=== PATIENT | male | born 1965 | race Caucasian/White ===

== ENCOUNTER 2018-05-16 10:19 | Inpatient (IN) | payer OTHER ==
[~2018-05-16] VITALS: Ht 170.2 cm; Wt 104.0 kg
[2018-05-16] MEDS ORDERED: SODIUM CHLORIDE 0.9% 500 ML IV ONE (11:05)
[2018-05-16] MEDS ORDERED: diphenhdrAMINE HCL 50 MG/1 ML VL IV ONE (11:15)
[2018-05-16] MEDS ORDERED: LORazepam 2MG/ML-1ML VIAL IV ONE ×2 (11:15→11:45)
[2018-05-16 11:18] LABS: Basophils # (auto) 0 uL; Basophils % (auto) 0.5 % (0.0-2.0); Eosinophils # (auto) 0.1 uL; Eosinophils % (auto) 0.8 % (0.0-7.0); Hemoglobin 15.6 g/dL (13.5-17.5); Lymphocytes # (auto) 2.3 uL; Lymphocytes % (auto) 24.6 % (10.0-50.0); Mean Corpuscular Hemoglobin 31.9 pg (28.0-32.0); Mean Corpuscular Hgb Conc. 34.5 g/dL (32.0-36.0); Mean Corpuscular Volume 92.4 fL (80.0-100.0); Monocytes # (auto) 0.7 uL; Monocytes % (auto) 7.6 % (0.0-12.0); Neutrophils # (auto) 6.1 uL; Neutrophils % (auto) 66.5 % (37.0-80.0); Nucleated Red Blood Cells % 0.1 %; Platelet Count (auto) 227 10^3/uL (140-450); Red Blood Cells 4.87 10^6/uL (4.5-5.90); Red Cell Distribution Width 14.3 % (11.8-14.3); White Blood Cell 9.2 10^3/uL (4.4-10.8)
[2018-05-16 11:37] LABS: Alanine Aminotransferase 22 U/L (16-61); Albumin 3.7 g/dL (3.4-5.0); Anion Gap 12 (5-15); Aspartate Aminotransferase 17 U/L (15-37); BUN/Creatinine Ratio 13.8; Blood Alcohol < 3.0 mg/dL (0-5); Blood Urea Nitrogen 12 mg/dL (7-18); Calcium 8.5 mg/dL (8.5-10.1); Carbon Dioxide 15 mmol/L (21-32); Chloride 114 mmol/L (98-107); GFR African American 117 mL/min; GFR Non-African American 97 mL/min; Glucose 90 mg/dL (74-106); Potassium 3.8 mmol/L (3.5-5.1); Sodium 141 mmol/L (136-145)
[2018-05-16 11:40] LABS: Alkaline Phosphatase 89 U/L (45-117); Bilirubin, Total 0.8 mg/dL (0.2-1.0)
[2018-05-16] MEDS ORDERED: diphenhdrAMINE HCL 25 MG CAP PO ONE (11:45)
[2018-05-16 12:30] LABS: Urine Bacteria NONE SEEN /hpf (None Seen); Urine Blood Negative /uL (Negative); Urine Mucus FEW (None Seen); Urine Specific Gravity 1.025 (1.001-1.035); Urine WBC 2 /hpf (0 - 3)
[2018-05-16] MEDS ORDERED: CITALOPRAM HYDROBR 20 MG TAB PO ONE (12:30)
[2018-05-16 12:59] LABS: Amphetamine Screen, Urine NEGATIVE (NEGATIVE); Barbiturate Scree,Urine NEGATIVE (NEGATIVE); Benzodiazephine Screen, Urine NEGATIVE (NEGATIVE); Cannabinoid Screen, Urine POSITIVE (NEGATIVE); Cocaine Screen, Urine NEGATIVE (NEGATIVE); Opiate Scree,Urine NEGATIVE (NEGATIVE); Phencyclidine Screen, Urine NEGATIVE (NEGATIVE)
[2018-05-16] MEDS ORDERED: clonazePAM 0.5 MG TAB PO ONE (21:00)
[2018-05-17] MEDS ORDERED: CITALOPRAM HYDROBR 20 MG TAB PO ONE (11:15)
[2018-05-17] MEDS ORDERED: clonazePAM 0.5 MG TAB PO ONE ×2 (11:15→14:45)
[2018-05-17] MEDS ORDERED: LORazepam 0.5 MG TAB PO ONE (13:45)
[2018-05-17] MEDS ORDERED: PYRIDOXINE HCL 50 MG TAB PO SCH (15:00)
[2018-05-17] MEDS: ALBUTEROL SULF 2.5 MG/0.5ML(0.5%) NEB SOLN NEB SCH (18:12)
[2018-05-17] MEDS: IPRATROPIUM BROM 0.5 MG/2.5ML INH SOL NEB SCH (18:12)
[2018-05-17 19:14] VITALS: BP 109/65
[2018-05-17 20:48] VITALS: BP 124/84
[2018-05-17] MEDS: clonazePAM 0.5 MG TAB PO SCH (21:35)
[2018-05-17] MEDS ORDERED: HYDR12.56 PO (22:53)
[2018-05-17] MEDS ORDERED: ZIPR80CA8 PO (22:53)
[2018-05-17] MEDS ORDERED: CLON05T PO (22:53)
[2018-05-17] MEDS ORDERED: CITA-73 PO (22:53)
[2018-05-17] MEDS ORDERED: RASA1TAB4 PO (22:53)
[2018-05-17] MEDS ORDERED: FLUT250M2 IN (22:53)
[2018-05-18] MEDS ORDERED: IBUPROFEN 600 MG TAB PO PRN (02:15)
[2018-05-18 05:11] VITALS: BP 114/75
[2018-05-18 06:17] LABS: Basophils # (auto) 0 uL; Basophils % (auto) 0.3 % (0.0-2.0); Eosinophils # (auto) 0.1 uL; Eosinophils % (auto) 1.4 % (0.0-7.0); Hematocrit 43.1 % (41.0-53.0); Hemoglobin 14.6 g/dL (13.5-17.5); Lymphocytes # (auto) 2.2 uL; Mean Corpuscular Hemoglobin 31.5 pg (28.0-32.0); Mean Corpuscular Hgb Conc. 33.9 g/dL (32.0-36.0); Mean Corpuscular Volume 92.8 fL (80.0-100.0); Monocytes # (auto) 0.6 uL; Monocytes % (auto) 7.4 % (0.0-12.0); Neutrophils # (auto) 4.9 uL; Neutrophils % (auto) 62.9 % (37.0-80.0); Nucleated Red Blood Cells % 0.1 %; Platelet Count (auto) 197 10^3/uL (140-450); Red Blood Cells 4.65 10^6/uL (4.5-5.90); Red Cell Distribution Width 14.3 % (11.8-14.3); White Blood Cell 7.8 10^3/uL (4.4-10.8)
[2018-05-18 06:28] LABS: BUN/Creatinine Ratio 18.1; Calcium 8.1 mg/dL (8.5-10.1)
[2018-05-18] MEDS: ALBUTEROL SULF 2.5 MG/0.5ML(0.5%) NEB SOLN NEB SCH ×3 (07:08→20:10)
[2018-05-18] MEDS: IPRATROPIUM BROM 0.5 MG/2.5ML INH SOL NEB SCH ×3 (07:08→20:10)
[2018-05-18 07:22] VITALS: BP 113/78
[2018-05-18] MEDS: PYRIDOXINE HCL 50 MG TAB PO SCH (10:02)
[2018-05-18] MEDS: clonazePAM 0.5 MG TAB PO SCH ×2 (10:02→22:52)
[2018-05-18] MEDS: CITALOPRAM HYDROBR 20 MG TAB PO SCH (10:03)
[2018-05-18] MEDS: HYDROcodone-ACET 10/325MG TAB PO PRN ×3 (10:09→22:53)
[2018-05-18 12:02] VITALS: BP 139/77
[2018-05-18 16:43] VITALS: BP 132/79
[2018-05-18 21:00] VITALS: BP 125/58
[2018-05-19 05:03] VITALS: BP 93/57
[2018-05-19] MEDS: IPRATROPIUM BROM 0.5 MG/2.5ML INH SOL NEB SCH ×4 (06:21→19:02)
[2018-05-19] MEDS: ALBUTEROL SULF 2.5 MG/0.5ML(0.5%) NEB SOLN NEB SCH ×4 (06:21→19:02)
[2018-05-19 08:00] VITALS: BP 129/76
[2018-05-19 09:00] VITALS: BP 129/76
[2018-05-19] MEDS: clonazePAM 0.5 MG TAB PO SCH ×2 (10:37→21:23)
[2018-05-19] MEDS: HYDROcodone-ACET 10/325MG TAB PO PRN ×2 (10:38→16:41)
[2018-05-19] MEDS: CITALOPRAM HYDROBR 20 MG TAB PO SCH (10:38)
[2018-05-19] MEDS: PYRIDOXINE HCL 50 MG TAB PO SCH (10:39)
[2018-05-19 13:00] VITALS: BP 123/77
[2018-05-19 17:00] VITALS: BP 127/87
[2018-05-19 22:00] VITALS: BP 102/59
[2018-05-20] MEDS: HYDROcodone-ACET 10/325MG TAB PO PRN ×2 (00:10→07:35)
[2018-05-20] MEDS: ALBUTEROL SULF 2.5 MG/0.5ML(0.5%) NEB SOLN NEB SCH ×3 (00:35→11:49)
[2018-05-20] MEDS: IPRATROPIUM BROM 0.5 MG/2.5ML INH SOL NEB SCH ×3 (00:35→11:49)
[2018-05-20 05:00] VITALS: BP 116/75
[2018-05-20] MEDS: PYRIDOXINE HCL 50 MG TAB PO SCH (09:50)
[2018-05-20] MEDS: CITALOPRAM HYDROBR 20 MG TAB PO SCH (09:50)
[2018-05-20] MEDS: clonazePAM 0.5 MG TAB PO SCH (09:50)
[2018-05-20] MEDS ORDERED: diphenhdrAMINE HCL 50 MG/1 ML VL IV ONE (10:30)
[2018-05-20] MEDS ORDERED: diphenhdrAMINE HCL 25 MG CAP PO PRN (11:30)
== END 2018-05-20 14:45 | DRG 93 ==
LOC: ER 10:19 → OVERFLOW 05-17 10:20 → WEST WING 05-17 20:05 → UNDODISIN 05-18 19:35
PROVIDERS: ADMIT Internal Medicine; ATTEND Internal Medicine
DX: G24.01 Drug induced subacute dyskinesia (principal); F20.9 Schizophrenia, unspecified; F31.9 Bipolar disorder, unspecified; I10 Essential (primary) hypertension; E78.5 Hyperlipidemia, unspecified; J44.9 Chronic obstructive pulmonary disease, unspecified; G93.89 Other specified disorders of brain; G89.29 Other chronic pain; M54.5 Low back pain; R21 Rash and other nonspecific skin eruption; T43.95XA Adverse effect of unspecified psychotropic drug, initial encounter; F17.210 Nicotine dependence, cigarettes, uncomplicated; F41.9 Anxiety disorder, unspecified; I25.2 Old myocardial infarction; Z87.442 Personal history of urinary calculi; Z87.820 Personal history of traumatic brain injury; Z79.899 Other long term (current) drug therapy; Y92.89 Other specified places as the place of occurrence of the external cause; Z90.49 Acquired absence of other specified parts of digestive tract
CPT/HCPCS: 36415; 36600; 70450; 71045; 80048; 80053; 80307; 80320; 81001; 82805; 82962; 85025; 87081; 93005; 94640; 96361; 96374; 96376

== ENCOUNTER 2023-03-24 12:50 | Emergency (ER) | payer OTHER, MEDICAID ==
[~2023-03-24] VITALS: Ht 167.6 cm; Wt 90.9 kg
[~2023-03-24 12:50] MED LIST: CITA-73 PO; CLON0.5T3 PO; FLUT250M2 IN; HYDR-4798 PO; HYDR12.59 PO; IBUP-1455 PO; RASA1TAB4 PO; ZIPR80CA37 PO
[2023-03-24 14:13] VITALS: TEMP 98.6; O2SAT 100
[2023-03-24] MEDS ORDERED: DexAMETHasone SOD PHOS 10MG/1ML VIAL INJ IM ONE (14:45)
[2023-03-24] MEDS ORDERED: ONDANSETRON ODT 4 MG TAB PO ONE (14:45)
[2023-03-24] MEDS ORDERED: MORPHINE SULFATE INJ 2 MG/ml SYRG IM ONE (14:45)
[2023-03-24] MEDS ORDERED: IBU600T PO (15:17)
[2023-03-24] MEDS ORDERED: CYCL-611 PO (15:17)
[2023-03-24 15:43] VITALS: BP 109/86; PULSE 82; RESP 20
== END 2023-03-24 15:54 | disposition home or self-care (01) ==
LOC: ER 12:50
DX: G89.29 Other chronic pain (principal); M54.50 Low back pain, unspecified; M62.838 Other muscle spasm; F17.210 Nicotine dependence, cigarettes, uncomplicated; E78.5 Hyperlipidemia, unspecified; I10 Essential (primary) hypertension; I25.2 Old myocardial infarction; Z87.442 Personal history of urinary calculi; Z90.49 Acquired absence of other specified parts of digestive tract
CPT/HCPCS: 72131; 96372; 99285; J1100; J2270; Q0162

== ENCOUNTER 2023-04-20 15:22 | Emergency (ER) | payer OTHER, MEDICAID ==
[~2023-04-20] VITALS: Ht 165.1 cm; Wt 81.8 kg
[~2023-04-20 15:22] MED LIST changes: +CYCL-611 PO; +IBU600T PO
[2023-04-20] MEDS ORDERED: HYDROmorphone HCL 2 MG/ML VL/or syr IM ONE (16:30)
[2023-04-20] MEDS ORDERED: ONDANSETRON HCL 4 MG/2 ML VIAL IM ONE (16:30)
[2023-04-20] MEDS ORDERED: HYDR2TAB58 PO (20:16)
[2023-04-20 20:32] VITALS: BP 160/82; PULSE 69; RESP 17; TEMP 97.2; O2SAT 97
== END 2023-04-20 20:36 | disposition home or self-care (01) ==
LOC: EDBD 15:22 → ER 15:22
DX: S33.5XXA Sprain of ligaments of lumbar spine, initial encounter (principal); I25.2 Old myocardial infarction; I10 Essential (primary) hypertension; F17.210 Nicotine dependence, cigarettes, uncomplicated; E78.5 Hyperlipidemia, unspecified; Z90.49 Acquired absence of other specified parts of digestive tract; Z79.1 Long term (current) use of non-steroidal anti-inflammatories (NSAID); Z79.899 Other long term (current) drug therapy; X58.XXXA Exposure to other specified factors, initial encounter; Y93.89 Activity, other specified; Y92.89 Other specified places as the place of occurrence of the external cause; Y99.8 Other external cause status
CPT/HCPCS: 96372; 99284; J1170; J2405

== ENCOUNTER 2024-01-28 14:15 | Emergency (ER) | payer OTHER, MEDICAID ==
[~2024-01-28] VITALS: Ht 167.6 cm; Wt 72.7 kg
[~2024-01-28 14:15] MED LIST changes: +HYDR2TAB58 PO; -ZIPR80CA37 PO; +ZIPR80CA43 PO
[2024-01-28 15:09] LABS: Basophils # (auto) 0.1 10 ^3/uL (0-0.2); Basophils % (auto) 0.5 % (0.0-2.0); Eosinophils # (auto) 0.1 10 ^3/uL (0-0.8); Eosinophils % (auto) 0.5 % (0.0-7.0); Hematocrit 46.6 % (41.0-53.0); Hemoglobin 15.7 g/dL (13.5-17.5); Lymphocytes # (auto) 3.3 10 ^3/uL (0.4-5.4); Lymphocytes % (auto) 24.7 % (10.0-50.0); Mean Corpuscular Hemoglobin 30.2 pg (28.0-32.0); Mean Corpuscular Hgb Conc. 33.8 g/dL (32.0-36.0); Mean Corpuscular Volume 89.4 fL (80.0-100.0); Monocytes # (auto) 1.2 10 ^3/uL (0-1.3); Monocytes % (auto) 9.3 % (0.0-12.0); Neutrophils # (auto) 8.6 10 ^3/uL (1.6-8.6); Nucleated Red Blood Cells % 0.2 %; Red Blood Cells 5.21 10^6/uL (4.5-5.90); White Blood Cell 13.3 10^3/uL (4.4-10.8)
[2024-01-28 15:18] LABS: Chloride 106 mmol/L (98-107); Potassium 3.7 mmol/L (3.5-5.1); Sodium 138 mmol/L (136-145)
[2024-01-28 15:19] LABS: Anion Gap 8 (5-15); Calcium 9.9 mg/dL (8.5-10.1); Carbon Dioxide 24 mmol/L (20-30)
[2024-01-28 15:24] LABS: BUN/Creatinine Ratio 9.6 (10.0-20.0); Blood Urea Nitrogen 12 mg/dL (9-23); Glucose 106 mg/dL (74-106)
[2024-01-28] MEDS: HYDROmorphone HCL 2 MG/ML VL/or syr IM ONE ×2 (15:25→18:54)
[2024-01-28 18:15] LABS: Urine Bacteria None Seen /hpf (None Seen)
[2024-01-28 18:35] LABS: Amphetamine Screen, Urine Neg (NEGATIVE); Barbiturate Scree,Urine Neg (NEGATIVE); Benzodiazephine Screen, Urine Neg (NEGATIVE); Cannabinoid Screen, Urine Pos (NEGATIVE); Cocaine Screen, Urine Neg (NEGATIVE); Opiate Scree,Urine Neg (NEGATIVE); Phencyclidine Screen, Urine Neg (NEGATIVE)
[2024-01-28 18:37] LABS: Urine Blood Negative /uL (Negative); Urine Clarity Clear (Clear); Urine Color Yellow (Yellow); Urine Hyaline Cast MANY /lpf (0 - 2); Urine Protein, UAD TRACE (Negative); Urine Specific Gravity 1.016 (1.001-1.035); Urine Urobilinogen 3 mg/dL (Negative); Urine WBC 1 /hpf (0 - 3); Urine pH 7.5 (5.0-9.0)
[2024-01-28] MEDS ORDERED: HYDR2TAB58 PO (18:52)
[2024-01-28 19:42] VITALS: BP 138/79; PULSE 63; RESP 16; TEMP 97.4; O2SAT 98
== END 2024-01-28 20:54 | disposition home or self-care (01) ==
LOC: EDUNIT# 14:15 → EDBD 14:15 → ER 14:21
DX: M54.42 Lumbago with sciatica, left side (principal); M54.41 Lumbago with sciatica, right side; Z79.899 Other long term (current) drug therapy
CPT/HCPCS: 36415; 80048; 80307; 81001; 85025; 96372; 99284; J1170

== ENCOUNTER 2024-02-01 16:49 | Emergency (ER) | payer OTHER, MEDICAID ==
[~2024-02-01] VITALS: Ht 172.7 cm; Wt 81.8 kg
[2024-02-01] MEDS: ONDANSETRON HCL 4 MG/2 ML VIAL IV ONE (18:04)
[2024-02-01 18:05] VITALS: PULSE 68; RESP 16; TEMP 99.8; O2SAT 99
[2024-02-01] MEDS: MORPHINE SULFATE 4 MG/ML SYR/VIAL IV ONE (18:05)
[2024-02-01 18:34] VITALS: BP 150/72; PULSE 85; RESP 19
== END 2024-02-01 18:40 | disposition home or self-care (01) ==
LOC: EDBD 16:49 → ER 16:49
DX: M54.16 Radiculopathy, lumbar region (principal); F17.210 Nicotine dependence, cigarettes, uncomplicated; F41.9 Anxiety disorder, unspecified; E78.5 Hyperlipidemia, unspecified; I10 Essential (primary) hypertension; I25.2 Old myocardial infarction; Z87.442 Personal history of urinary calculi; Z90.49 Acquired absence of other specified parts of digestive tract; Z79.899 Other long term (current) drug therapy
CPT/HCPCS: 96374; 96375; 99284; J2270; J2405

== ENCOUNTER 2024-05-11 13:25 | Emergency (ER) | payer OTHER, MEDICAID ==
[~2024-05-11] VITALS: Ht 170.2 cm; Wt 90.0 kg
[2024-05-11 15:06] VITALS: BP 108/68; PULSE 86; RESP 20; TEMP 98.4; O2SAT 98
[2024-05-11] MEDS ORDERED: GABA-1250 PO (15:59)
[2024-05-11] MEDS ORDERED: IBUP-1456 PO (15:59)
[2024-05-11] MEDS: KETOROLAC TROMETH 60MG/2ML VIAL IM ONE (16:06)
== END 2024-05-11 16:13 | disposition home or self-care (01) ==
LOC: EDBD 13:25 → ER 13:25
DX: S16.1XXA Strain of muscle, fascia and tendon at neck level, initial encounter (principal); M50.31 Other cervical disc degeneration, high cervical region; I10 Essential (primary) hypertension; E78.5 Hyperlipidemia, unspecified; I25.2 Old myocardial infarction; F41.9 Anxiety disorder, unspecified; F17.210 Nicotine dependence, cigarettes, uncomplicated; F15.90 Other stimulant use, unspecified, uncomplicated; Z98.890 Other specified postprocedural states; Z87.442 Personal history of urinary calculi; Z79.899 Other long term (current) drug therapy; V89.2XXA Person injured in unspecified motor-vehicle accident, traffic, initial encounter; Y93.89 Activity, other specified; Y92.89 Other specified places as the place of occurrence of the external cause; Y99.8 Other external cause status
CPT/HCPCS: 72040; 96372; 99283; J1885